=== PATIENT | female | born 1970 | race Caucasian/White ===

== ENCOUNTER 2024-01-01 12:15 | Emergency (ER) | payer OTHER ==
[2024-01-01 12:44] VITALS: BP 130/64; PULSE 69; RESP 16; TEMP 97.7; BMI 26.2
== END 2024-01-01 13:50 | disposition home or self-care (01) ==
LOC: JER 12:15
DX: H81.392 Other peripheral vertigo, left ear (principal)
CPT/HCPCS: 82962; 93005; 93010; 99284-25

== ENCOUNTER 2024-06-05 23:20 | Emergency (ER) | payer OTHER ==
[2024-06-05 23:41] VITALS: BP 165/70; PULSE 75; RESP 16; TEMP 98.3; BMI 24.4
[2024-06-06] MEDS ORDERED: ACETAMINOPHEN 500 MG TABLET (FP) PO ONE (00:33)
== END 2024-06-06 00:47 | disposition home or self-care (01) ==
LOC: JER 23:20
DX: Z04.89 Encounter for examination and observation for other specified reasons (principal)
CPT/HCPCS: 82962; 99283-25